=== PATIENT | female | born 1980 | race Caucasian/White ===

== ENCOUNTER 2017-01-13 23:34 | Emergency (ER) | payer OTHER ==
[~2017-01-13] VITALS: Ht 165.1 cm; Wt 62.2 kg
[~2017-01-13 23:34] MED LIST: /AUGM875TA OR; DEPA250T2 PO; EXCETAB80 PO; FLAG500T OR; GABA-283 PO; IBUP600T OR; IMETREX SC; OMEP20CA3 PO; OSCA200T PO; PERC5TAB8 OR; RIZA10TA2 PO; SERT-138 PO; TRAZ-136 PO; TYLE325T5 PO; ZANA4CAP PO; [UNRECOGNIZED DRUG - OTHER] INH
[2017-01-13] MEDS ORDERED: LYRI150C PO (23:50)
[2017-01-13] MEDS ORDERED: NEUR800T PO (23:50)
[2017-01-13] MEDS ORDERED: ZOLO100T PO (23:50)
[2017-01-13] MEDS ORDERED: WELLTAB40 PO (23:50)
[2017-01-14] MEDS ORDERED: NS 1,000 ML IV ONE (00:15)
[2017-01-14 00:53] LABS: BASO % 0.5 % (0.0-1.0); EOS # 0.1 K/mm3 (0.0-0.50); LARGE UNSTAINED CELL % 0.8 % (0.0-4.0); LYMPH % 38.6 % (24.0-44.0); MEAN CORPUSCULAR HEMOGLOBIN 30.8 pg (27.0-33.0); MEAN CORPUSCULAR HGB CONC 33.7 g/dl (32.0-36.5); MEAN CORPUSCULAR VOLUME 91.4 fl (80.0-96.0); MONO # 0.2 K/mm3 (0.0-0.8); NEUTROPHILS # 2.8 K/mm3 (1.8-7.7); NEUTROPHILS % 55.2 % (36.0-66.0); PLATELET COUNT, AUTOMATED 149 k/mm3 (150-450); RED CELL DISTRIBUTION WIDTH 13.8 % (11.5-14.5)
[2017-01-14 01:08] LABS: ANION GAP 4 MEQ/L (8-16); BLOOD UREA NITROGEN 11 MG/DL (7-18); CALCIUM LEVEL 8.8 MG/DL (8.5-10.1); CARBON DIOXIDE LEVEL 30 MEQ/L (21-32); CHLORIDE LEVEL 106 MEQ/L (98-107); CREATININE FOR GFR 0.87 MG/DL (0.55-1.02); GLOMERULAR FILTRATION RATE > 60.0 (>60); GLUCOSE, FASTING 101 MG/DL (70-105); POTASSIUM SERUM 3.6 MEQ/L (3.5-5.1); SODIUM LEVEL 140 MEQ/L (136-145)
--- NOTE | 2017-01-14 01:10 | REPUSA ---
CT of the head Clinical history: Left-sided hemiparesis. Technique: Multiple axial CT images were obtained through the head without administration of contrast . Comparison: 01/12/2013. Findings: The ventricles and sulci are symmetric bilaterally. There is no evidence of acute hemorrhag e or infarct. There is no midline shift, mass effect, or extra-axial fluid collection. The osseous st ructures are unremarkable. The visualized paranasal sinuses and mastoid air cells are clear. Impression: Negative study.
[2017-01-14 01:33] LABS: INR 0.99
[2017-01-14] MEDS ORDERED: METOCLOPRAMIDE INJ 10MG/2ML VIAL (J2765) IV ONE ×2 (01:45→03:15)
[2017-01-14] MEDS ORDERED: KETOROLAC 30 MG/ML VIAL (J1885) IV ONE (01:45)
[2017-01-14] MEDS ORDERED: diphenhydrAMINE INJ 50MG/ML VIAL (J1200) IV ONE (01:45)
[2017-01-14 05:12] VITALS: BP 98/54
--- NOTE | 2017-01-14 08:26 | ECGEPIP ---
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
== END 2017-01-14 05:15 | disposition home or self-care (01) ==
LOC: M ED 23:34
DX: G43.409 Hemiplegic migraine, not intractable, without status migrainosus (principal); F17.210 Nicotine dependence, cigarettes, uncomplicated; Z79.899 Other long term (current) drug therapy; Z91.048 Other nonmedicinal substance allergy status

== ENCOUNTER → 2017-02-06 | Outpatient (CLI) | payer OTHER ==
[~2017-02-06] MED LIST changes: +LYRI150C PO; +NEUR800T PO; +WELLTAB40 PO; +ZOLO100T PO
[2017-02-06 18:20] LABS: FOLATE 7.8 NG/ML; VITAMIN B12 LEVEL 288 PG/ML
[2017-02-06 18:49] LABS: FREE T4 0.85 NG/DL (0.76-1.46)
[2017-02-06 18:54] LABS: MEAN CORPUSCULAR HEMOGLOBIN 30.8 pg (27.0-33.0); MEAN CORPUSCULAR HGB CONC 32.8 g/dl (32.0-36.5); MEAN CORPUSCULAR VOLUME 93.7 fl (80.0-96.0); RED CELL DISTRIBUTION WIDTH 14.7 % (11.5-14.5); WHITE BLOOD COUNT 3.9 K/mm3 (4.0-10.0)
[2017-02-09 00:08] LABS: Lyme Disease IgG/IgM Antibodie <0.91 ISR (0.00-0.90); Lyme Disease IgM Ab Quantitati <0.80 index (0.00-0.79)
== END ==
LOC: M WUC 12:03
PROVIDERS: ATTEND Physician Assistant Surgical
DX: M79.641 Pain in right hand (principal)

== ENCOUNTER → 2017-07-10 | Outpatient (CLI) | payer OTHER ==
--- NOTE | 2017-07-10 15:18 | REP ---
Clinical: Lower abdominal pain. Technique: Single supine view of the abdomen and pelvis. Comparison: 05/21/2015. Findings: Bowel gas pattern is nonspecific. No organomegaly. No abnormal calcifications. Skeletal structures are intact and normal for age. Impression: Normal nonspecific abdominal radiograph. Signed by Skyler Barajas MD 07/10/2017 03:09 P
[2017-07-10 17:12] LABS: BASO % 0.2 % (0.0-1.0); IMMATURE GRANULOCYTE % 0.4 % (0-0); LYMPH # 1.6 10^3/uL (1.5-4.5); LYMPH % 16.2 % (24.0-44.0); MEAN CORPUSCULAR HEMOGLOBIN 31.3 pg (27.0-33.0); MEAN CORPUSCULAR HGB CONC 34.3 g/dl (32.0-36.5); MEAN CORPUSCULAR VOLUME 91.2 fl (80.0-96.0); MONO # 0.3 10^3/uL (0.0-0.8); MONO % 3.3 % (0.0-5.0); NEUTROPHILS # 8.1 10^3/uL (1.8-7.7); NEUTROPHILS % 79.9 % (36.0-66.0); PLATELET COUNT, AUTOMATED 182 10^3/uL (150-450); RED CELL DISTRIBUTION WIDTH 13.2 % (11.5-14.5); WHITE BLOOD COUNT 10.1 10^3/uL (4.0-10.0)
[2017-07-10 18:37] LABS: ALBUMIN 4.4 GM/DL (3.2-5.2); ALBUMIN/GLOBULIN RATIO 1.33 (1.00-1.93); ALKALINE PHOSPHATASE 80 U/L (45-117); ALT/SGPT 20 U/L (12-78); AMYLASE 39 U/L (25-115); ANION GAP 4 MEQ/L (8-16); AST/SGOT 16 U/L (7-37); BILIRUBIN,TOTAL 0.3 MG/DL (0.2-1.0); BLOOD UREA NITROGEN 9 MG/DL (7-18); CALCIUM LEVEL 8.6 MG/DL (8.5-10.1); CARBON DIOXIDE LEVEL 31 MEQ/L (21-32); CHLORIDE LEVEL 103 MEQ/L (98-107); CREATININE FOR GFR 0.78 MG/DL (0.55-1.02); GLOMERULAR FILTRATION RATE > 60.0 (>60); GLUCOSE, FASTING 90 MG/DL (70-105); POTASSIUM SERUM 4.2 MEQ/L (3.5-5.1); SODIUM LEVEL 138 MEQ/L (136-145); TOTAL PROTEIN 7.7 GM/DL (6.4-8.2)
== END ==
LOC: M WUC 14:46
PROVIDERS: ATTEND Physician Assistant
DX: R10.30 Lower abdominal pain, unspecified (principal)

== ENCOUNTER → 2017-07-17 | Outpatient (REF) | payer OTHER | LOC: M LAB REF 13:02 | DX: R10.32 Left lower quadrant pain (principal) | CPT/HCPCS: 87086 ==

== ENCOUNTER → 2017-07-17 | Outpatient (CLI) | payer OTHER ==
[2017-07-17 15:19] LABS: BASO % 0.4 % (0.0-1.0); HEMATOCRIT 40.6 % (36.0-47.0); HEMOGLOBIN 13.9 g/dl (12.0-16.0); IMMATURE GRANULOCYTE % 0.2 % (0-0); LYMPH # 2.2 10^3/uL (1.5-4.5); LYMPH % 47.6 % (24.0-44.0); MEAN CORPUSCULAR HEMOGLOBIN 31.5 pg (27.0-33.0); MEAN CORPUSCULAR HGB CONC 34.2 g/dl (32.0-36.5); MEAN CORPUSCULAR VOLUME 92.1 fl (80.0-96.0); MONO # 0.2 10^3/uL (0.0-0.8); MONO % 4.1 % (0.0-5.0); NEUTROPHILS # 2.2 10^3/uL (1.8-7.7); NEUTROPHILS % 47.7 % (36.0-66.0); PLATELET COUNT, AUTOMATED 179 10^3/uL (150-450); RED BLOOD COUNT 4.41 10^6/uL (4.00-5.40); WHITE BLOOD COUNT 4.6 10^3/uL (4.0-10.0)
== END ==
LOC: M WUC 12:14
DX: R10.32 Left lower quadrant pain (principal)
CPT/HCPCS: 85025

== ENCOUNTER → 2017-07-27 | Outpatient (CLI) | payer OTHER ==
[~2017-07-27] MED LIST changes: -/AUGM875TA OR; -DEPA250T2 PO; -EXCETAB80 PO; -FLAG500T OR; -GABA-283 PO; +GASTROGRAFIN SOLUTION 30ML (Q9963) As Ordered; -IBUP600T OR; -IMETREX SC; +ISOVUE-370 76% 100ML VIAL (Q9967) As Ordered; -LYRI150C PO; -NEUR800T PO; -OMEP20CA3 PO; -OSCA200T PO; -PERC5TAB8 OR; -RIZA10TA2 PO; -SERT-138 PO; -TRAZ-136 PO; -TYLE325T5 PO; -WELLTAB40 PO; -ZANA4CAP PO; -ZOLO100T PO; -[UNRECOGNIZED DRUG - OTHER] INH
== END ==
LOC: M RAD 14:05
DX: R10.9 Unspecified abdominal pain (principal)
CPT/HCPCS: Q9963

== ENCOUNTER → 2018-11-05 | Outpatient (CLI) | payer OTHER ==
[~2018-11-05] MED LIST changes: +/AUGM875TA OR; +DEPA250T2 PO; +EXCETAB80 PO; +FLAG500T OR; +GABA-845 PO; -GASTROGRAFIN SOLUTION 30ML (Q9963) As Ordered; +IBUP600T OR; +IMETREX SC; -ISOVUE-370 76% 100ML VIAL (Q9967) As Ordered; +LYRI150C PO; +NEUR800T PO; +OMEP20CA3 PO; +OSCA200T PO; +PERC5TAB8 OR; +RIZA10TA2 PO; +SERT-138 PO; +TRAZ-163 PO; +TYLE325T5 PO; +WELLTAB40 PO; +ZANA4CAP PO; +ZOLO100T PO; +[UNRECOGNIZED DRUG - OTHER] INH
[2018-11-05 13:42] LABS: BASO % 0.4 % (0.0-1.0); HEMOGLOBIN 14.6 g/dl (12.0-15.5); LYMPH # 2.2 10^3/uL (1.5-4.5); MEAN CORPUSCULAR HEMOGLOBIN 30.7 pg (27.0-33.0); MEAN CORPUSCULAR HGB CONC 33.2 g/dl (32.0-36.5); MEAN CORPUSCULAR VOLUME 92.4 fl (80.0-96.0); MONO # 0.2 10^3/uL (0.0-0.8); MONO % 3.6 % (0.0-5.0); NEUTROPHILS # 2.9 10^3/uL (1.8-7.7); NEUTROPHILS % 53.8 % (36.0-66.0); PLATELET COUNT, AUTOMATED 181 10^3/uL (150-450); RED BLOOD COUNT 4.76 10^6/uL (4.00-5.40); WHITE BLOOD COUNT 5.3 10^3/uL (4.0-10.0)
[2018-11-05 13:47] LABS: ALBUMIN 3.7 GM/DL (3.2-5.2); ALT/SGPT 26 U/L (12-78); BILIRUBIN,TOTAL 0.3 MG/DL (0.2-1.0); BLOOD UREA NITROGEN 9 MG/DL (7-18); CALCIUM LEVEL 8.6 MG/DL (8.5-10.1); CARBON DIOXIDE LEVEL 29 MEQ/L (21-32); CHLORIDE LEVEL 103 MEQ/L (98-107); CREATININE FOR GFR 0.72 MG/DL (0.55-1.30); GLOMERULAR FILTRATION RATE > 60.0 (>60); GLUCOSE, FASTING 88 MG/DL (70-100); POTASSIUM SERUM 4.3 MEQ/L (3.5-5.1); SODIUM LEVEL 139 MEQ/L (136-145); TOTAL PROTEIN 7.3 GM/DL (6.4-8.2)
== END ==
LOC: M WUC 11:26
PROVIDERS: ATTEND Family Medicine
DX: R53.83 Other fatigue (principal)

== ENCOUNTER 2018-12-05 13:38 | Emergency (ER) | payer OTHER ==
[~2018-12-05] VITALS: Ht 152.4 cm; Wt 62.2 kg
[2018-12-05] MEDS ORDERED: TRAM50TA2 (13:51)
[2018-12-05 14:24] LABS: APPEARANCE, URINE CLEAR (CLEAR); BACTERIA, URINE AUTO 1+ (NEGATIVE); BILIRUBIN, URINE AUTO NEGATIVE (NEGATIVE); BLOOD, URINE BLOOD 1+ (NEGATIVE); COLOR, URINE YELLOW (YELLOW); GLUCOSE, URINE (UA) AUTO NEGATIVE (NEGATIVE); KETONE, URINE AUTO NEGATIVE (NEGATIVE); LEUKOCYTE ESTERASE, URINE AUTO NEGATIVE (NEGATIVE); MUCUS, URINE SMALL (NEGATIVE); NITRITE, URINE AUTO NEGATIVE (NEGATIVE); PROTEIN, URINE AUTO NEGATIVE (NEGATIVE); RBC, URINE AUTO 5 /HPF (0-3); SPECIFIC GRAVITY URINE AUTO 1.024 (1.002-1.035); SQUAMOUS EPITHELIAL CELL UR AU 3 /HPF (0-6); WBC, URINE AUTO 1 /HPF (0-3)
[2018-12-05 15:00] LABS: BASO % 0.4 % (0.0-1.0); EOS % 0.2 % (0.0-3.0); HEMATOCRIT 42.1 % (36.0-47.0); HEMOGLOBIN 14.4 g/dl (12.0-15.5); LYMPH # 1.8 10^3/uL (1.5-4.5); LYMPH % 39.6 % (24.0-44.0); MEAN CORPUSCULAR HEMOGLOBIN 32.1 pg (27.0-33.0); MEAN CORPUSCULAR HGB CONC 34.2 g/dl (32.0-36.5); MEAN CORPUSCULAR VOLUME 93.8 fl (80.0-96.0); MONO # 0.2 10^3/uL (0.0-0.8); MONO % 4.2 % (0.0-5.0); NEUTROPHILS # 2.5 10^3/uL (1.8-7.7); NEUTROPHILS % 55.4 % (36.0-66.0); PLATELET COUNT, AUTOMATED 187 10^3/uL (150-450); RED BLOOD COUNT 4.49 10^6/uL (4.00-5.40); WHITE BLOOD COUNT 4.5 10^3/uL (4.0-10.0)
[2018-12-05 15:24] LABS: BLOOD UREA NITROGEN 11 MG/DL (7-18); CALCIUM LEVEL 8.1 MG/DL (8.5-10.1); CARBON DIOXIDE LEVEL 25 MEQ/L (21-32); CHLORIDE LEVEL 109 MEQ/L (98-107); CREATININE FOR GFR 0.67 MG/DL (0.55-1.30); GLOMERULAR FILTRATION RATE > 60.0 (>60); GLUCOSE, FASTING 102 MG/DL (70-100); POTASSIUM SERUM 4.1 MEQ/L (3.5-5.1); SODIUM LEVEL 141 MEQ/L (136-145)
[2018-12-05 16:01] LABS: HCG, SERUM QUALITATIVE NEGATIVE (NEGATIVE)
[2018-12-05 16:29] LABS: ALBUMIN 3.7 GM/DL (3.2-5.2); ALT/SGPT 223 U/L (12-78); AMYLASE 40 U/L (25-115); BILIRUBIN,DIRECT < 0.1 MG/DL (0.0-0.2); BILIRUBIN,TOTAL 0.2 MG/DL (0.2-1.0); CK-MB VALUE MASS < 1.0 NG/ML (<3.6); CPK CREATINE PHOSPHOKINASE 75 U/L (26-192); LIPASE 167 U/L (73-393); MB/CK RELATIVE INDEX 1.33 (< OR =4); TOTAL PROTEIN 6.8 GM/DL (6.4-8.2); TROPONIN I < 0.02 NG/ML (< 0.10)
--- NOTE | 2018-12-05 17:00 | REP ---
Clinical: Acute chest and abdominal pain. Technique: Upright view of the chest with supine and upright views of the abdomen and pelvis. Findings: Frontal upright view of the chest demonstrates no acute cardiopulmonary process or free air below the diaphragm to suspect pneumoperitoneum. Supine and upright views of the abdomen and pelvis demonstrate nonspecific bowel gas pattern without obstruction or perforation. No organomegaly. No abnormal calcifications. Skeletal structures normal for age. Impression: Nonspecific bowel gas pattern. Normal frontal chest x-ray. Electronically Signed by Skyler Barajas MD 12/05/2018 04:52 P
--- NOTE | 2018-12-05 17:37 | REP ---
Clinical: Elevated liver function tests. Technique: Real time rogers scale ultrasound examination using curved array transducer. Findings: Gallbladder appears contracted with multiple gallstones and a positive sonographic Li's sign was elicited during examination. No biliary ductal dilatation is appreciated and the common bile duct measures 6 mm diameter. Liver demonstrates heterogeneous increased echotexture suggesting fatty infiltration without focal hepatic lesion identified. The pancreas is normal in appearance and echogenicity. The right kidney is normal in reniform shape without hydronephrosis and measures 9.3 x 4.8 x 3.9 cm. No ascites. Impression: 1. Cholelithiasis and findings to suggest biliary colic. Early acute cholecystitis cannot be excluded. 2. Hepatic steatosis without focal hepatic lesion identified. Electronically Signed by Skyler Barajas MD 12/05/2018 05:29 P
[2018-12-05 17:43] VITALS: BP 108/60
[2018-12-05] MEDS ORDERED: ONDA4TAB6 PO (18:14)
--- NOTE | 2018-12-05 20:52 | ECGEPIP ---
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 Order Number: [id number] Reading MD: Kelsey Perez Measurements Intervals [place] Rate: 67 P: 52 NV: 136 QRS: 86 QRSD: 82 T: 72 QT: 371 QTc: 393 Interpretive Statements SINUS RHYTHM DECREASED RATE 01/14/17 Electronically Signed on 12-05-2018 20:52:29 EDT by Kelsey Perez
[2018-12-06 11:17] LABS: HEPATITIS A ANTIBODY IGM NEGATIVE (NEGATIVE); HEPATITIS B CORE ANTIBODY IGM NEGATIVE (NEGATIVE); HEPATITIS B SURFACE ANTIGEN NEGATIVE (NEGATIVE)
--- NOTE | 2018-12-07 09:03 | ED PDOC ---
Post-Departure Follow-Up dr rossi and dr hobson faxed formal report of liver us for fu Abdirahman Reveles MD December 07, 2018 09:03
== END 2018-12-05 18:37 | disposition home or self-care (01) ==
LOC: M ED 13:38
DX: K80.70 Calculus of gallbladder and bile duct without cholecystitis without obstruction (principal); K76.0 Fatty (change of) liver, not elsewhere classified; J44.9 Chronic obstructive pulmonary disease, unspecified; G43.809 Other migraine, not intractable, without status migrainosus; Z79.899 Other long term (current) drug therapy

== ENCOUNTER 2018-12-09 12:03 | Emergency (ER) | payer OTHER ==
[~2018-12-09] VITALS: Ht 152.4 cm; Wt 62.2 kg
[~2018-12-09 12:03] MED LIST changes: +ONDA4TAB6 PO; +TRAM50TA2
[2018-12-09 12:49] LABS: BASO % 0.4 % (0.0-1.0); LYMPH # 2.2 10^3/uL (1.5-4.5); LYMPH % 43.5 % (24.0-44.0); MEAN CORPUSCULAR HEMOGLOBIN 31.5 pg (27.0-33.0); MEAN CORPUSCULAR HGB CONC 33.3 g/dl (32.0-36.5); MEAN CORPUSCULAR VOLUME 94.5 fl (80.0-96.0); MONO # 0.2 10^3/uL (0.0-0.8); MONO % 3.5 % (0.0-5.0); NEUTROPHILS # 2.7 10^3/uL (1.8-7.7); NEUTROPHILS % 52.2 % (36.0-66.0); PLATELET COUNT, AUTOMATED 182 10^3/uL (150-450); RED BLOOD COUNT 4.76 10^6/uL (4.00-5.40); WHITE BLOOD COUNT 5.1 10^3/uL (4.0-10.0)
[2018-12-09 13:13] LABS: ALBUMIN 3.9 GM/DL (3.2-5.2); ALT/SGPT 77 U/L (12-78); BILIRUBIN,DIRECT < 0.1 MG/DL (0.0-0.2); BILIRUBIN,TOTAL 0.3 MG/DL (0.2-1.0); BLOOD UREA NITROGEN 7 MG/DL (7-18); CALCIUM LEVEL 8.5 MG/DL (8.5-10.1); CARBON DIOXIDE LEVEL 27 MEQ/L (21-32); CHLORIDE LEVEL 109 MEQ/L (98-107); CREATININE FOR GFR 0.65 MG/DL (0.55-1.30); GLOMERULAR FILTRATION RATE > 60.0 (>60); GLUCOSE, FASTING 89 MG/DL (70-100); LIPASE 166 U/L (73-393); POTASSIUM SERUM 4.8 MEQ/L (3.5-5.1); SODIUM LEVEL 141 MEQ/L (136-145); TOTAL PROTEIN 7.2 GM/DL (6.4-8.2)
[2018-12-09] MEDS ORDERED: ONDANSETRON 4MG/2ML VIAL (J2405) IV ONE (14:00)
[2018-12-09] MEDS ORDERED: MORPHINE 4 MG/ML 1ML VIAL/SYRINGE (J2270) IV PRN (14:00)
[2018-12-09] MEDS ORDERED: NS 1,000 ML IV ONE (14:00)
[2018-12-09] MEDS ORDERED: PERC5TAB12 PO (15:19)
[2018-12-09 15:31] VITALS: BP 117/62
--- NOTE | 2018-12-09 21:11 | ECGEPIP ---
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
== END 2018-12-09 15:38 | disposition home or self-care (01) ==
LOC: M ED 12:03
DX: R10.9 Unspecified abdominal pain (principal); R74.0 Nonspecific elevation of levels of transaminase and lactic acid dehydrogenase [LDH]; R11.0 Nausea; J44.9 Chronic obstructive pulmonary disease, unspecified; K21.9 Gastro-esophageal reflux disease without esophagitis; Z79.899 Other long term (current) drug therapy; F17.210 Nicotine dependence, cigarettes, uncomplicated
CPT/HCPCS: 80048; 80076; 83690; 85025; 93005; 96374; 96375; 99284; J2270; J2405

== ENCOUNTER → 2018-12-19 | Outpatient (CLI) | payer OTHER ==
[~2018-12-19] MED LIST changes: +PERC5TAB12 PO
[2018-12-19 19:20] LABS: BASO % 0.4 % (0.0-1.0); EOS % 0.2 % (0.0-3.0); HEMATOCRIT 45.5 % (36.0-47.0); HEMOGLOBIN 15.1 g/dl (12.0-15.5); LYMPH # 2.1 10^3/uL (1.5-4.5); LYMPH % 38.2 % (24.0-44.0); MEAN CORPUSCULAR HEMOGLOBIN 30.9 pg (27.0-33.0); MEAN CORPUSCULAR HGB CONC 33.2 g/dl (32.0-36.5); MONO # 0.2 10^3/uL (0.0-0.8); MONO % 3.8 % (0.0-5.0); NEUTROPHILS # 3.2 10^3/uL (1.8-7.7); NEUTROPHILS % 57.2 % (36.0-66.0); PLATELET COUNT, AUTOMATED 167 10^3/uL (150-450); RED BLOOD COUNT 4.89 10^6/uL (4.00-5.40); WHITE BLOOD COUNT 5.5 10^3/uL (4.0-10.0)
[2018-12-19 19:25] LABS: ALBUMIN 3.8 GM/DL (3.2-5.2); ALT/SGPT 27 U/L (12-78); BILIRUBIN,TOTAL 0.2 MG/DL (0.2-1.0); BLOOD UREA NITROGEN 11 MG/DL (7-18); CALCIUM LEVEL 8.5 MG/DL (8.5-10.1); CARBON DIOXIDE LEVEL 28 MEQ/L (21-32); CHLORIDE LEVEL 104 MEQ/L (98-107); CREATININE FOR GFR 0.93 MG/DL (0.55-1.30); GLOMERULAR FILTRATION RATE > 60.0 (>60); GLUCOSE, FASTING 94 MG/DL (70-100); POTASSIUM SERUM 4.3 MEQ/L (3.5-5.1); SODIUM LEVEL 139 MEQ/L (136-145); TOTAL PROTEIN 7.5 GM/DL (6.4-8.2)
== END ==
LOC: M WUC 11:09
PROVIDERS: ATTEND Family Medicine
DX: Z01.818 Encounter for other preprocedural examination (principal)

== ENCOUNTER 2018-12-27 07:11 | Day surgery (SDC) | payer OTHER ==
[~2018-12-27] VITALS: Ht 152.4 cm; Wt 61.2 kg
[~2018-12-27 07:11] MED LIST changes: +AMPICILLIN SOD/SULBACTAM SOD 3 GM in D5W MINI-BAG PLUS 100 ML IV ONE; +BUPIVACAINE HCL 0.25% 30 ML VIAL As Ordered ONE; +CONRAY-60 60% 50ML VIAL (Q9961) As Ordered ONE; +LIDOCAINE 1% SDV INJ 30 ML VIAL As Ordered ONE; +LR 1,000 ML IV SCH
[2018-12-27] MEDS ORDERED: ACETAMINOPHEN 1000MG 100ML IV BTL (OFIRMEV) (J0131 PER 10MG) As Ordered ONE ×2 (08:38→09:53)
[2018-12-27] MEDS ORDERED: fentaNYL 250 MCG/5 ML INJECTION (J3010) As Ordered ONE (09:53)
[2018-12-27] MEDS ORDERED: ROCURONIUM BROMIDE 50 MG/5 ML VIAL As Ordered ONE (09:53)
[2018-12-27] MEDS ORDERED: PROPOFOL 200 MG/20 ML VIAL As Ordered ONE (09:53)
[2018-12-27] MEDS ORDERED: dexameTHASONE 4 MG/ML 1ML VIAL (J1100) As Ordered ONE (09:53)
[2018-12-27] MEDS ORDERED: MIDAZOLAM INJ 2 MG/2 ML VIAL (J2250) As Ordered ONE (09:53)
[2018-12-27] MEDS ORDERED: LIDOCAINE 2% INJ 100 MG/5 ML SDV (FOR ANES.) As Ordered ONE (09:53)
[2018-12-27] MEDS ORDERED: ONDANSETRON 4MG/2ML VIAL (J2405) As Ordered ONE ×2 (10:08→12:00)
[2018-12-27] MEDS ORDERED: ESMOLOL INJ 100MG/10ML VIAL As Ordered ONE (10:16)
[2018-12-27] MEDS ORDERED: SUGAMMADEX SODIUM 500 MG/5 ML VIAL (BRIDION) As Ordered ONE (11:24)
--- NOTE | 2018-12-27 11:26 | REP ---
INTRAOPERATIVE CHOLANGIOGRAM: Three views. HISTORY: Cholelithiasis. 35 seconds of fluoroscopy time is reported. FINDINGS: A sequence of three last image hold fluoroscopically obtained spot radiographs of the right upper quadrant documents contrast in the gallbladder, common bile duct and central intrahepatic right bile ducts. No contrast is visible in the duodenum. No filling defect is seen in the bile duct. Electronically Signed by Reno Cordero MD 12/27/2018 03:09 P
[2018-12-27] MEDS ORDERED: KETOROLAC 60 MG/2 ML VIAL (J1885) As Ordered ONE (11:28)
[2018-12-27] MEDS ORDERED: fentaNYL 100 MCG/2 ML INJECTION (J3010) As Ordered ONE (12:00)
[2018-12-27] MEDS ORDERED: LR 1,000 ML IV SCH (12:00)
[2018-12-27] MEDS ORDERED: oxyCODONE 5MG TAB PO PRN (12:00)
[2018-12-27] MEDS ORDERED: ONDANSETRON 4MG/2ML VIAL (J2405) IV PRN ×2 (12:00→12:15)
[2018-12-27] MEDS: fentaNYL 100 MCG/2 ML INJECTION (J3010) IV PRN ×2 (12:00→12:05)
[2018-12-27] MEDS ORDERED: PERCOCET 5MG/325MG TAB PO PRN ×2 (12:15)
[2018-12-27 13:10] VITALS: BP 124/61
[2018-12-27] MEDS ORDERED: KETOROLAC 30 MG/ML VIAL (J1885) IV PRN (18:00)
--- NOTE | 2018-12-28 10:55 | ROOPDOC ---
[facility] Report Of Operation Report of Operation DATE OF PROCEDURE: 12/27/18 PREPROCEDURE DIAGNOSES: Cholelithiasis, biliary colic, abnormal LFTs. POSTPROCEDURE DIAGNOSES: Same. PROCEDURE: Laparoscopic cholecystectomy with intraoperative cholangiogram. SURGEON: Zhang Corado MD [employer]PAIR SUPERVISOR: Joshua Powers (MS III) ANESTHESIA: General Anesthesia. ESTIMATED BLOOD LOSS: Approximately 20 mL. COMPLICATIONS: none. REMARKS: 38 F with persistent right upper quadrant pain for roughly four weeks now, 2 emergency room visits with evidence for cholelithiasis, and transient elevation of her LFTs suggestive of probably passage of stones through her biliary ducts. PROCEDURE NOTE: distended but thin walled gallbladder, no wall thickening. Distended and enlarged cystic duct with stones in it. Normal sized common bile duct without stones on cholangiogram. DESCRIPTION OF PROCEDURE: Patient was given a dose Unasyn 3 g IV preoperatively for prophylaxis. He was brought to the operating room, laid supine on the table, compression boots placed for DVT prophylaxis. General endotracheal anesthesia started. His abdomen then prepped and draped in usual sterile fashion. Surgical timeout was performed prior to confirm right procedure, right patient identification and other necessary information prior to starting surgery. Entry into the abdomen done through an incision a few centimeters above the umbilical cleft. A Veress needle was inserted with a controlled fashion. CO2 insufflation started to pressure 15 mmHg. Using the same incision a 5 mm Visiport was placed under direct vision laparoscope. The area underneath the insertion site was inspected and no injury found. He was then placed in steep reverse Trendelenburg. His right side was tilted up to further expose the gallbladder. Under direct vision a 11 mm epigastric port and Two 5 mm working ports placed along the right subcostal line. Operative findings: His liver is noted to be smooth in contour no nodularities or lesions found. The size of the liver is moderately enlarged with the fatty replaced appearance . His gallbladder appears distended with multiple stones that are mobile in the neck and mid body of his gallbladder. The wall overall appears mildly thickened with thick fatty adipose tissue deposition especially in the lower pole of the gallbladder around the hepatocystic triangle The fundus of the gallbladder was grasped and the gallbladder is elevated superiorly exposing the neck of the gallbladder. The peritoneum overlying the area is opened up and dissected free both anteriorly and posteriorly to help with retraction of the gallbladder. The hepatocystic triangle was approached and dissected using a [place] and instrument. The cystic duct was identified coming off from the neck of the gallbladder. This was circumferentially dissected. The cystic artery was identified in its usual position medially behind a small lymph node of Calot. This was similarly circumferentially dissected off surrounding adipose tissue. We continued posterior dissection proximally at the neck of gallbladder to dissect the posterior wall of the gallbladder off the liver plate until a critical view of safety was achieved whereby only the previously identified duct and artery coursing through the neck the gallbladder. There was some bleeding behind the gallbladder. At this point the the cystic duct was most accessible and this was clipped 4 times and divided. We were then able to expose the course of the cystic artery better. After again checking her anatomy and verifying that the previously identified cystic duct, this was also clipped 4 times and divided. The rest of the gallbladder was then dissected free of the gallbladder bed using Bovie cautery. There was minimal bleeding at the posterior gallbladder attachments to the liver plate. This was easily controlled with Bovie cautery. The number appears quite mushy and easy to break through the thin capsule and cause some slight bleeding. The gallbladder was then placed in an Endo Catch bag and retrieved outside through the epigastric port site. After re-insufflation and inspected the clips and noted this to be in place. No further bleeding noted. No bile leakage noted. The abdomen was deflated all ports were removed. The epigastric fascial defect repaired with 0 Vicryl in a mattress fashion. Rest of the skin incisions closed with 4-0 Monocryl in subcuticular fashion. Steri- Strips and gauze dressings were placed, the wound. Patient was informed they awakened, extubated and brought to recovery room stable ZHANG CORADO MD Dec 27, 2018 12:27
== END 2018-12-27 13:15 | disposition home or self-care (01) ==
LOC: M SDC 07:11
PROVIDERS: ATTEND Surgery
DX: M79.7 Fibromyalgia (principal); R94.5 Abnormal results of liver function studies; F32.9 Major depressive disorder, single episode, unspecified; G43.909 Migraine, unspecified, not intractable, without status migrainosus; M79.10 Myalgia, unspecified site; M54.2 Cervicalgia; M54.5 Low back pain; G89.29 Other chronic pain; K21.9 Gastro-esophageal reflux disease without esophagitis; M12.9 Arthropathy, unspecified; F41.9 Anxiety disorder, unspecified; I69.998 Other sequelae following unspecified cerebrovascular disease; J44.9 Chronic obstructive pulmonary disease, unspecified; Z79.899 Other long term (current) drug therapy; Z85.43 Personal history of malignant neoplasm of ovary; Z72.0 Tobacco use; Z90.710 Acquired absence of both cervix and uterus
CPT/HCPCS: 47563; 76000; 88304; J0131; J1100; J1885; J2250; J2405; J3010; Q9961

== ENCOUNTER → 2019-01-09 | Outpatient (CLI) | payer OTHER ==
[~2019-01-09] MED LIST changes: -AMPICILLIN SOD/SULBACTAM SOD 3 GM in D5W MINI-BAG PLUS 100 ML IV ONE; -BUPIVACAINE HCL 0.25% 30 ML VIAL As Ordered ONE; -CONRAY-60 60% 50ML VIAL (Q9961) As Ordered ONE; -LIDOCAINE 1% SDV INJ 30 ML VIAL As Ordered ONE; -LR 1,000 ML IV SCH; +NAPR-837 PO
[2019-01-09 12:31] LABS: HEMATOCRIT 42.1 % (36.0-47.0); HEMOGLOBIN 13.9 g/dl (12.0-15.5); MEAN CORPUSCULAR HEMOGLOBIN 31.6 pg (27.0-33.0); MEAN CORPUSCULAR VOLUME 95.7 fl (80.0-96.0); PLATELET COUNT, AUTOMATED 188 10^3/uL (150-450); WHITE BLOOD COUNT 6.6 10^3/uL (4.0-10.0)
[2019-01-09 13:03] LABS: ALBUMIN 3.9 GM/DL (3.2-5.2); ALT/SGPT 111 U/L (12-78); AMYLASE 36 U/L (25-115); BILIRUBIN,TOTAL 0.2 MG/DL (0.2-1.0); BLOOD UREA NITROGEN 8 MG/DL (7-18); CALCIUM LEVEL 8.5 MG/DL (8.5-10.1); CARBON DIOXIDE LEVEL 27 MEQ/L (21-32); CHLORIDE LEVEL 108 MEQ/L (98-107); CREATININE FOR GFR 0.67 MG/DL (0.55-1.30); GLOMERULAR FILTRATION RATE > 60.0 (>60); GLUCOSE, FASTING 84 MG/DL (70-100); LIPASE 144 U/L (73-393); POTASSIUM SERUM 4.2 MEQ/L (3.5-5.1); SODIUM LEVEL 142 MEQ/L (136-145); TOTAL PROTEIN 6.9 GM/DL (6.4-8.2)
== END ==
LOC: M LAB 11:55
PROVIDERS: ATTEND Surgery
DX: K80.10 Calculus of gallbladder with chronic cholecystitis without obstruction (principal)

== ENCOUNTER 2019-01-19 16:16 | Emergency (ER) | payer OTHER ==
[~2019-01-19] VITALS: Ht 157.5 cm; Wt 60.9 kg
[~2019-01-19 16:16] MED LIST changes: -NAPR-837 PO; -OMEP20CA3 PO; +OMEP20CA4 PO
[2019-01-19] MEDS ORDERED: NS 1,000 ML IV ONE (16:45)
--- NOTE | 2019-01-19 16:55 | REP ---
Clinical: Altered mental status . Comparison: 01/14/2017 . Findings: The ventricles, sulci, and cisterns are normal in position and appearance. Henley-white differentiation is maintained. No acute intracranial hemorrhage, mass/mass effect, pathology or trauma/injury. No evidence for acute infarction. No extra-axial fluid collection. Calvarium is intact. Paranasal sinuses and mastoid air cells are clear. Impression: Normal noncontrast head CT. No evidence for acute intracranial pathology or trauma/injury. Electronically Signed by Skyler Barajas MD 01/19/2019 04:46 P
--- NOTE | 2019-01-19 17:02 | REP ---
Clinical: Altered mental status. Seizure. Comparison: 12/05/2018 . Findings: The mediastinum and cardiac silhouette are stable and within normal limits for portable technique. The lung reid are clear without acute consolidation, effusion, or pneumothorax. Skeletal structures are intact. Impression: No acute cardiopulmonary process appreciated. Electronically Signed by Skyler Barajas MD 01/19/2019 04:54 P
[2019-01-19 17:07] LABS: BASO % 0.4 % (0.0-1.0); EOS % 0.2 % (0.0-3.0); HEMATOCRIT 45.1 % (36.0-47.0); LYMPH # 1.7 10^3/uL (1.5-4.5); LYMPH % 36.8 % (24.0-44.0); MEAN CORPUSCULAR HEMOGLOBIN 31.8 pg (27.0-33.0); MEAN CORPUSCULAR HGB CONC 33.3 g/dl (32.0-36.5); MEAN CORPUSCULAR VOLUME 95.8 fl (80.0-96.0); MONO # 0.2 10^3/uL (0.0-0.8); MONO % 3.4 % (0.0-5.0); NEUTROPHILS # 2.8 10^3/uL (1.8-7.7); NEUTROPHILS % 58.8 % (36.0-66.0); PLATELET COUNT, AUTOMATED 188 10^3/uL (150-450); RED BLOOD COUNT 4.71 10^6/uL (4.00-5.40); WHITE BLOOD COUNT 4.7 10^3/uL (4.0-10.0)
--- NOTE | 2019-01-19 17:10 | ECGEPIP ---
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
[2019-01-19 17:46] LABS: ACETAMINOPHEN LEVEL < 2.0 UG/ML (10.0-30.0); ALT/SGPT 28 U/L (12-78); BILIRUBIN,DIRECT < 0.1 MG/DL (0.0-0.2); BILIRUBIN,TOTAL 0.3 MG/DL (0.2-1.0); BLOOD UREA NITROGEN 6 MG/DL (7-18); CALCIUM LEVEL 8.5 MG/DL (8.5-10.1); CARBON DIOXIDE LEVEL 27 MEQ/L (21-32); CHLORIDE LEVEL 105 MEQ/L (98-107); CK-MB VALUE MASS < 1.0 NG/ML (<3.6); CPK CREATINE PHOSPHOKINASE 97 U/L (26-192); CREATININE FOR GFR 0.78 MG/DL (0.55-1.30); ETHYL ALCOHOL (ETHANOL) < 0.003 % (0.000-0.010); GLOMERULAR FILTRATION RATE > 60.0 (>60); GLUCOSE, FASTING 91 MG/DL (70-100); MB/CK RELATIVE INDEX 1.03 (< OR =4); POTASSIUM SERUM 4.3 MEQ/L (3.5-5.1); SALICYLATE LEVEL 4.4 MG/DL (5.0-30.0); SODIUM LEVEL 141 MEQ/L (136-145); TOTAL PROTEIN 7.4 GM/DL (6.4-8.2); TROPONIN I < 0.02 NG/ML (< 0.10)
[2019-01-19 19:07] LABS: AMPHETAMINES LEVEL URINE NEGATIVE (NEGATIVE); BARBITURATES URINE NEGATIVE (NEGATIVE); BENZODIAZEPINES URINE NEGATIVE (NEGATIVE); CANNABINOIDS URINE POSITIVE (NEGATIVE); COCAINE METABOLITE URINE NEGATIVE (NEGATIVE); METHADONE URINE NEGATIVE (NEGATIVE); OPIATES URINE NEGATIVE (NEGATIVE); PHENCYCLIDINE URINE NEGATIVE (NEGATIVE)
[2019-01-19] MEDS ORDERED: NAPR-837 PO (19:46)
[2019-01-19 20:00] VITALS: BP 119/74
== END 2019-01-19 20:10 | disposition home or self-care (01) ==
LOC: EDBD 16:16 → M ED 16:16
DX: G40.209 Localization-related (focal) (partial) symptomatic epilepsy and epileptic syndromes with complex partial seizures, not intractable, without status epilepticus (principal); Z86.73 Personal history of transient ischemic attack (TIA), and cerebral infarction without residual deficits; Z79.899 Other long term (current) drug therapy
CPT/HCPCS: 70450; 71045; 80048; 80076; 80307; 81001; 82140; 82550; 82553; 83605; 84443; 85025; 93005; 93041; 94760; 96360; 96361; 99285; G0480

== ENCOUNTER → 2019-01-21 | Outpatient (CLI) | payer OTHER ==
[~2019-01-21] MED LIST changes: +NAPR-837 PO
--- NOTE | 2019-01-21 21:41 | REP ---
Clinical: Contusion. Technique: AP, lateral, bilateral oblique views of the left hand. Findings: No acute fracture dislocation. Skeletal structures, joint spaces, and surrounding soft tissues appear normal. Impression: No obvious fracture or dislocation. Subtle nondisplaced transverse fracture through the distal radial metaphysis cannot be excluded. Electronically Signed by Skyler aBrajas MD 01/21/2019 09:32 P
--- NOTE | 2019-01-21 21:42 | REP ---
Clinical: Trauma. Technique: AP, lateral, bilateral oblique views left wrist . Findings: The carpal bones, surrounding osseous structures, soft tissues, and joint spaces are normal. There is no evidence for acute fracture or dislocation. Cortical irregularity at the level of the distal radial metaphysis likely nonacute although very subtle nondisplaced injury cannot definitively be excluded and should be correlated with mechanism of injury and point of tenderness. No subcutaneous emphysema or radiodense foreign body. Impression: No definite acute fracture dislocation. As above. Correlation recommended. Electronically Signed by Skyler Barajas MD 01/21/2019 09:33 P
== END ==
LOC: M WUC 11:16
PROVIDERS: ATTEND Physician Assistant
DX: S60.212A Contusion of left wrist, initial encounter (principal); S60.222A Contusion of left hand, initial encounter; X58.XXXA Exposure to other specified factors, initial encounter; Y92.89 Other specified places as the place of occurrence of the external cause

== ENCOUNTER → 2019-01-28 | Outpatient (CLI) | payer OTHER ==
[~2019-01-28] MED LIST changes: +GASTROGRAFIN SOLUTION 30ML (Q9963) As Ordered ONE; +ISOVUE-370 76% 100ML VIAL (Q9967) As Ordered ONE; +OMEP1CAP73 PO; -OMEP20CA4 PO; -TRAZ-163 PO; +TRAZ-257 PO
--- NOTE | 2019-01-28 14:52 | REP ---
CT of the abdomen and pelvis with IV and oral contrast: Comparison is 07/27/2017. The visualized lung reid are unremarkable. The hepatic parenchyma is homogeneous. There is no dilatation of the intrahepatic biliary ducts. There is no dilatation of the common biliary duct. There are surgical clips in the gallbladder fossa as an interval change. The pancreas and spleen are unremarkable. The adrenals, kidneys and abdominal aorta are unremarkable. The bowel and mesentery are unremarkable. Pelvis: The appendix is unremarkable. e There is a hysterectomy. Vaginal cuff, adnexa and bladder are unremarkable. There is no adenopathy or ascites. The pelvic bowel loops are unremarkable. Impression: Cholecystectomy and hysterectomy. No biliary duct dilatation. Pancreas is unremarkable. Otherwise, negative CT of the abdomen and pelvis. Electronically Signed by Efrem Finley MD 01/28/2019 02:43 P
== END ==
LOC: M RAD 11:50
PROVIDERS: ATTEND Surgery
DX: K80.10 Calculus of gallbladder with chronic cholecystitis without obstruction (principal); Z90.49 Acquired absence of other specified parts of digestive tract; Z90.710 Acquired absence of both cervix and uterus
CPT/HCPCS: 74177; Q9963; Q9967

== ENCOUNTER → 2019-05-05 | Outpatient (REF) | payer OTHER ==
[~2019-05-05] MED LIST changes: -GASTROGRAFIN SOLUTION 30ML (Q9963) As Ordered ONE; -ISOVUE-370 76% 100ML VIAL (Q9967) As Ordered ONE; -OMEP1CAP73 PO; +OMEP20CA4 PO; +TRAZ-163 PO; -TRAZ-257 PO
[2019-05-05 15:08] LABS: BASO % 0.4 % (0.0-1.0); HEMOGLOBIN 14.3 g/dl (12.0-15.5); LYMPH # 1.9 10^3/uL (1.5-5.0); LYMPH % 42.6 % (24.0-44.0); MEAN CORPUSCULAR HEMOGLOBIN 31.9 pg (27.0-33.0); MEAN CORPUSCULAR HGB CONC 33.3 g/dl (32.0-36.5); MONO # 0.2 10^3/uL (0.0-0.8); MONO % 4.9 % (0.0-5.0); NEUTROPHILS # 2.3 10^3/uL (1.5-8.5); NEUTROPHILS % 51.9 % (36.0-66.0); PLATELET COUNT, AUTOMATED 166 10^3/uL (150-450); RED BLOOD COUNT 4.48 10^6/uL (4.00-5.40); WHITE BLOOD COUNT 4.5 10^3/uL (4.0-10.0)
[2019-05-05 15:23] LABS: ALBUMIN 3.5 GM/DL (3.2-5.2); ALT/SGPT 33 U/L (12-78); BILIRUBIN,TOTAL 0.3 MG/DL (0.2-1.0); BLOOD UREA NITROGEN 9 MG/DL (7-18); CALCIUM LEVEL 8.2 MG/DL (8.5-10.1); CARBON DIOXIDE LEVEL 29 MEQ/L (21-32); CHLORIDE LEVEL 107 MEQ/L (98-107); CHOLESTEROL LEVEL 284 MG/DL (<200); CHOLESTEROL RISK RATIO 8.606 (<5); CREATININE FOR GFR 0.81 MG/DL (0.55-1.30); FERRITIN 7 NG/ML (8-252); FREE T4 0.96 NG/DL (0.76-1.46); GLOMERULAR FILTRATION RATE > 60.0 (>60); GLUCOSE, FASTING 89 MG/DL (70-100); HDL CHOLESTEROL 33 MG/DL (>40); IRON (FE) 73 UG/DL (50-170); LDL CHOLESTEROL 209 MG/DL (<100); NON-HDL-C 251 MG/DL; PERCENT SATURATION 18.4 % (13.2-45.0); POTASSIUM SERUM 4.7 MEQ/L (3.5-5.1); SODIUM LEVEL 140 MEQ/L (136-145); TOTAL 25(OH) VITAMIN D 18.7 NG/ML (30.0-100.0); TOTAL IRON BINDING CAPACITY 396 UG/DL (250-450); TOTAL PROTEIN 6.8 GM/DL (6.4-8.2); TRIGLYCERIDES LEVEL 209 MG/DL (<150)
== END ==
LOC: M SFHCSACK 09:31
PROVIDERS: ATTEND Physician Assistant
DX: D50.9 Iron deficiency anemia, unspecified (principal); Z13.220 Encounter for screening for lipoid disorders; Z13.29 Encounter for screening for other suspected endocrine disorder; Z13.21 Encounter for screening for nutritional disorder

== ENCOUNTER 2019-09-20 20:04 | Emergency (ER) | payer OTHER ==
[~2019-09-20] VITALS: Ht 157.5 cm; Wt 62.5 kg
[~2019-09-20 20:04] MED LIST changes: +OMEP1CAP73 PO; -OMEP20CA4 PO; -TRAZ-163 PO; +TRAZ-257 PO
[2019-09-20] MEDS ORDERED: ALBU8.5H IH (20:17)
[2019-09-20] MEDS ORDERED: ONDANSETRON 4MG/2ML VIAL (J2405) IV ONE (21:15)
[2019-09-20] MEDS ORDERED: KETOROLAC 30 MG/ML VIAL (J1885) IV ONE (21:15)
[2019-09-20] MEDS ORDERED: NS 1,000 ML IV ONE (21:15)
[2019-09-20 21:33] LABS: BASO % 0.1 % (0.0-1.0); HEMATOCRIT 43.9 % (36.0-47.0); HEMOGLOBIN 14.9 g/dl (12.0-15.5); LYMPH # 2.5 10^3/uL (1.5-5.0); LYMPH % 31.9 % (24.0-44.0); MEAN CORPUSCULAR HEMOGLOBIN 30.7 pg (27.0-33.0); MEAN CORPUSCULAR HGB CONC 33.9 g/dl (32.0-36.5); MEAN CORPUSCULAR VOLUME 90.5 fl (80.0-96.0); MONO # 0.3 10^3/uL (0.0-0.8); MONO % 3.8 % (0.0-5.0); NEUTROPHILS # 5.1 10^3/uL (1.5-8.5); NEUTROPHILS % 63.9 % (36.0-66.0); PLATELET COUNT, AUTOMATED 216 10^3/uL (150-450); RED BLOOD COUNT 4.85 10^6/uL (4.00-5.40); WHITE BLOOD COUNT 7.9 10^3/uL (4.0-10.0)
[2019-09-20] MEDS ORDERED: ISOVUE-370 76% 100ML VIAL (Q9967) As Ordered ONE (22:10)
[2019-09-20 22:24] LABS: ALBUMIN 4.1 GM/DL (3.2-5.2); ALT/SGPT 40 U/L (12-78); BILIRUBIN,DIRECT < 0.1 MG/DL (0.0-0.2); BILIRUBIN,TOTAL 0.3 MG/DL (0.2-1.0); TOTAL PROTEIN 7.8 GM/DL (6.4-8.2)
--- NOTE | 2019-09-20 22:38 | REPVR ---
PROCEDURE INFORMATION: Exam: CT Abdomen And Pelvis With Contrast Exam date and time: 09/20/2019 10:05 PM Age: 38 years old Clinical indication: Abdominal pain; Localized; Right lower quadrant (rlq); Additional info: Rlq pain TECHNIQUE: Imaging protocol: Computed tomography of the abdomen and pelvis with intravenous contrast. Axial, coronal and sagittal reformatted images were created and reviewed. Radiation optimization: All CT scans at this facility use at least one of these dose optimization techniques: automated exposure control; mA and/or kV adjustment per patient size (includes targeted exams where dose is matched to clinical indication); or iterative reconstruction. Contrast material: ISOVUE 370; Contrast volume: 100 ml; Contrast route: IV; COMPARISON: CT ABD PELVIS WITH CONTRAST 01/28/2019 12:48 PM FINDINGS: Mediastinum: Small hiatal hernia. Liver: Mild hepatic steatosis. Gallbladder and bile ducts: Status post cholecystectomy. No biliary ductal dilatation. Pancreas: Unremarkable. Spleen: Unremarkable. Adrenals: Unremarkable. Kidneys and ureters: No mass. No radiodense calculi. No hydronephrosis. Stomach and bowel: No bowel wall thickening. No obstruction. No pneumatosis. Appendix: Normal. Intraperitoneal space: No free fluid. No organized fluid collection. No free air. Vasculature: Unremarkable. No aneurysm. Lymph nodes: No pathologically enlarged lymph nodes. Bladder: Unremarkable. Reproductive: Status post hysterectomy. Bones/joints: No acute osseous abnormality. Soft tissues: Unremarkable. IMPRESSION: 1. No CT evidence of acute intra-abdominal or pelvic pathology. 2. Additional findings, as above. Electronically signed by: Ricco Schrader On 09/20/2019 22:37:57 PM
[2019-09-20] MEDS ORDERED: ONDA4TAB6 PO (22:58)
[2019-09-20] MEDS ORDERED: DICY10CA13 PO (22:58)
[2019-09-20 23:24] VITALS: BP 144/82
== END 2019-09-21 00:06 | disposition home or self-care (01) ==
LOC: M ED 20:04
DX: R10.31 Right lower quadrant pain (principal); K76.0 Fatty (change of) liver, not elsewhere classified; K44.9 Diaphragmatic hernia without obstruction or gangrene; J44.9 Chronic obstructive pulmonary disease, unspecified; K21.9 Gastro-esophageal reflux disease without esophagitis; Z85.43 Personal history of malignant neoplasm of ovary; F17.210 Nicotine dependence, cigarettes, uncomplicated; Z79.51 Long term (current) use of inhaled steroids; Z79.899 Other long term (current) drug therapy
CPT/HCPCS: 74177; 80047; 80076; 81001; 85025; 96361; 96374; 96375; 99284; J1885; J2405; Q9967

== ENCOUNTER → 2019-12-04 | Outpatient (REF) | payer OTHER ==
[~2019-12-04] MED LIST changes: +ALBU8.5H IH; +DICY10CA13 PO
[2019-12-04 18:28] LABS: CHOLESTEROL RISK RATIO 11.483 (<5)
== END ==
LOC: M PLALAB 15:07
PROVIDERS: ATTEND Physician Assistant
DX: E78.2 Mixed hyperlipidemia (principal); E55.9 Vitamin D deficiency, unspecified

== ENCOUNTER 2020-12-28 20:38 | Emergency (ER) | payer OTHER ==
[~2020-12-28] VITALS: Ht 157.5 cm; Wt 60.7 kg
[~2020-12-28 20:38] MED LIST changes: +GABA-283 PO; -GABA-845 PO
[2020-12-28] MEDS ORDERED: TRAZ1TAB14 PO (20:46)
[2020-12-28 22:00] LABS: BASO % 0.3 % (0.0-1.0); HEMATOCRIT 45.1 % (36.0-47.0); HEMOGLOBIN 15.1 g/dl (12.0-15.5); LYMPH # 1.6 10^3/uL (1.5-5.0); LYMPH % 25.7 % (24.0-44.0); MEAN CORPUSCULAR HEMOGLOBIN 31.8 pg (27.0-33.0); MEAN CORPUSCULAR HGB CONC 33.5 g/dl (32.0-36.5); MEAN CORPUSCULAR VOLUME 94.9 fl (80.0-96.0); MONO # 0.2 10^3/uL (0.0-0.8); MONO % 3.3 % (2.0-8.0); NEUTROPHILS # 4.3 10^3/uL (1.5-8.5); NEUTROPHILS % 70.4 % (36.0-66.0); PLATELET COUNT, AUTOMATED 169 10^3/uL (150-450); RED BLOOD COUNT 4.75 10^6/uL (4.00-5.40); WHITE BLOOD COUNT 6.2 10^3/uL (4.0-10.0)
[2020-12-28] MEDS ORDERED: ONDANSETRON 4MG/2ML VIAL IV ONE (22:10)
[2020-12-28] MEDS ORDERED: KETOROLAC 30 MG/ML 1ML VIAL IV ONE (22:10)
[2020-12-28] MEDS ORDERED: NS 1,000 ML IV SCH (22:10)
[2020-12-28 22:30] LABS: ALBUMIN 4.2 GM/DL (3.2-5.2); ALT/SGPT 38 U/L (12-78); BILIRUBIN,DIRECT 0.1 MG/DL (0.0-0.2); BILIRUBIN,TOTAL 0.3 MG/DL (0.2-1.0); BLOOD UREA NITROGEN 10 MG/DL (7-18); CALCIUM LEVEL 8.7 MG/DL (8.5-10.1); CARBON DIOXIDE LEVEL 31 MEQ/L (21-32); CHLORIDE LEVEL 102 MEQ/L (98-107); CK-MB VALUE MASS < 1.0 NG/ML (<3.6); CPK CREATINE PHOSPHOKINASE 84 U/L (26-192); CREATININE FOR GFR 0.86 MG/DL (0.55-1.30); GLOMERULAR FILTRATION RATE > 60.0 (>58); GLUCOSE, FASTING 104 MG/DL (70-100); LIPASE 83 U/L (73-393); MB/CK RELATIVE INDEX 1.19 (< OR =4); POTASSIUM SERUM 3.7 MEQ/L (3.5-5.1); SODIUM LEVEL 138 MEQ/L (136-145); TOTAL PROTEIN 7.9 GM/DL (6.4-8.2); TROPONIN I < 0.02 NG/ML (< 0.10)
--- NOTE | 2020-12-28 23:04 | REPVR ---
PROCEDURE INFORMATION: Exam: XR Chest Exam date and time: 12/28/2020 10:23 PM Age: 40 years old Clinical indication: Chest pain TECHNIQUE: Imaging protocol: XR of the chest. Views: 2 views. COMPARISON: No relevant prior studies available. FINDINGS: Lungs: Unremarkable. No consolidation. No pulmonary edema. Pleural spaces: Unremarkable. No pleural effusion. No pneumothorax. Heart/Mediastinum: Unremarkable. No cardiomegaly. Bones/joints: There is a slight levoscoliosis at the thoracolumbar junction. Organs: There are surgical clips in the right upper quadrant of the abdomen related to a cholecystectomy. IMPRESSION: No acute findings. Electronically signed by: Fausto Boyd On 12/28/2020 23:04:25 PM
--- NOTE | 2020-12-29 01:20 | REPVR ---
PROCEDURE INFORMATION: Exam: CT Abdomen And Pelvis With Contrast Exam date and time: 12/28/2020 10:49 PM Age: 40 years old Clinical indication: Abdominal pain; Generalized TECHNIQUE: Imaging protocol: Computed tomography of the abdomen and pelvis with contrast. Radiation optimization: All CT scans at this facility use at least one of these dose optimization techniques: automated exposure control; mA and/or kV adjustment per patient size (includes targeted exams where dose is matched to clinical indication); or iterative reconstruction. Contrast material: ISO; Contrast volume: 100 ml; Contrast route: INTRAVENOUS (IV); COMPARISON: CT ABD/PEL W/IV CONTRAST ONLY 09/20/2019 10:04 PM FINDINGS: Lungs: The imaged portions of the lung bases are clear. The lungs were not fully imaged. Heart: No cardiomegaly or pericardial effusion. Mediastinal space: There is a small sliding hiatal hernia, which is similar in appearance compared to the prior CT abdomen and pelvis on 09/20/2019. Liver: The attenuation of the liver is more than 40 Hounsfield units lower in attenuation compared to the spleen, which is compatible with fatty liver infiltration. No liver lesion is identified. The contour of the liver is smooth. No hepatomegaly is noted. Gallbladder and bile ducts: There has been a cholecystectomy. There is no fluid collection in the gallbladder fossa. No dilation of the bile ducts is noted. No calcified stones are seen in the common bile duct. Pancreas: Normal. No dilation of the main pancreatic duct is noted. Spleen: Normal. No splenomegaly is noted. Adrenal glands: Normal. No adrenal mass is noted. Kidneys and ureters: There is a 3 mm benign-appearing cyst in the upper pole of the right kidney that is stable compared to the prior CT abdomen and pelvis on 09/20/2019 and for which follow-up imaging is not recommended. No solid renal mass is noted. No stones are noted in the kidneys or ureters. There is no hydronephrosis or hydroureter. There are no wedge-shaped areas of low attenuation in the kidneys to suggest pyelonephritis. There is no renal abscess or perinephric fluid collection. Stomach and bowel: There is thickening of the wall of the stomach, which may be secondary to its decompressed state versus gastritis. The small bowel is unremarkable. There is thickening of the wall of the ascending colon, transverse colon, descending colon, and sigmoid colon. The majority of the large bowel is decompressed. There is high attenuation fluid in the lumen of the cecum and ascending colon measuring up to 180 Hounsfield units, which may represent ingested material or acute hemorrhage. No pericolonic inflammatory fat stranding is noted. There is no evidence for bowel obstruction or perforated viscus. Appendix: Normal. There is no evidence for appendicitis. Intraperitoneal space: No free air. No ascites. No abscess. Retroperitoneal space: No fluid collection. No mass. Vasculature: The abdominal aorta is patent, normal in caliber, and there is no dissection. The iliac arteries, common femoral arteries, renal arteries, celiac artery, superior mesenteric artery, and inferior mesenteric artery are patent. There are mild atherosclerotic calcifications. Lymph nodes: No enlarged lymph nodes. Urinary bladder: The partially distended urinary bladder is unremarkable. No stones or masses are seen in the bladder. There is thickening of the wall of the partially distended urinary bladder. No calculi are noted in the bladder. Reproductive: There has been a hysterectomy. Bones/joints: There is no fracture or dislocation. No suspicious osteolytic or osteoblastic lesion. There is mild loss of disc height dorsally at the L5-S1 level. Soft tissues: Unremarkable. No hernia. No soft tissue fluid collection. IMPRESSION: 1. Thickening of the wall of the stomach and colon, which may be secondary to their decompressed state versus a gastrocolitis. 2. High attenuation fluid in the lumen of the cecum and ascending colon, which may represent ingested material or acute hemorrhage. 3. Thickening of the wall of the urinary bladder, which may be secondary to its partially distended state, bladder wall hypertrophy, or cystitis. Correlation with urinalysis is suggested. 4. Fatty liver. Electronically signed by: Fausto Boyd On 12/29/2020 01:19:42 AM
[2020-12-29 02:15] VITALS: BP 147/72
--- NOTE | 2020-12-29 08:15 | ECGEPIP ---
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
--- NOTE | 2020-12-29 13:56 | ED PDOC ---
Post-Departure Follow-Up ct abd/p faxed to [facility] for fu Abdirahman Reveles MD Dec 29, 2020 13:56
== END 2020-12-29 02:32 | disposition home or self-care (01) ==
LOC: M ED 20:38
DX: K58.8 Other irritable bowel syndrome (principal); R00.1 Bradycardia, unspecified; R10.9 Unspecified abdominal pain; K76.0 Fatty (change of) liver, not elsewhere classified; R07.9 Chest pain, unspecified; M79.7 Fibromyalgia; R56.9 Unspecified convulsions; G43.909 Migraine, unspecified, not intractable, without status migrainosus; F17.200 Nicotine dependence, unspecified, uncomplicated; Z79.899 Other long term (current) drug therapy
CPT/HCPCS: 71046; 74177; 80048; 80076; 81001; 82550; 82553; 83690; 85025; 93005; 96361; 96374; 96375; 99285; J1885; J2405

== ENCOUNTER 2021-04-08 09:29 | Emergency (ER) | payer OTHER ==
[~2021-04-08] VITALS: Ht 154.9 cm; Wt 59.9 kg
[~2021-04-08 09:29] MED LIST changes: +TRAZ1TAB14 PO
--- NOTE | 2021-04-08 10:08 | REP ---
INDICATION: fall. COMPARISON: 01/21/2019 TECHNIQUE: Four views FINDINGS: There is a slightly impacted distal radial fracture and a nondisplaced fractures through the base of the ulnar styloid process. IMPRESSION: Acute wrist fractures as described above. <Electronically signed by Marco Chamorro > 04/08/21 [id number]
[2021-04-08] MEDS ORDERED: KETOROLAC TROMETHAMINE 10 MG TAB PO ONE (10:40)
[2021-04-08 11:11] VITALS: BP 133/77
== END 2021-04-08 11:13 | disposition home or self-care (01) ==
LOC: M ED 09:29
DX: S52.502A Unspecified fracture of the lower end of left radius, initial encounter for closed fracture (principal); S52.615A Nondisplaced fracture of left ulna styloid process, initial encounter for closed fracture; Y92.009 Unspecified place in unspecified non-institutional (private) residence as the place of occurrence of the external cause; W10.8XXA Fall (on) (from) other stairs and steps, initial encounter; Y93.K1 Activity, walking an animal; Y99.9 Unspecified external cause status

== ENCOUNTER → 2021-04-12 | Outpatient (CLI) | payer OTHER ==
--- NOTE | 2021-04-12 13:05 | REP ---
INDICATION: LT WRIST FX. COMPARISON: 04/08/2021 without a cast TECHNIQUE: Three limited views FINDINGS: Previously described fractures are obscured by overlying casting material. There does not appear to be a significant change. IMPRESSION: As above <Electronically signed by Marco Chamorro > 04/12/21 [id number]
== END ==
LOC: M SOG 11:02
PROVIDERS: ATTEND Orthopaedic Surgery Sports Medicine
DX: S52.502A Unspecified fracture of the lower end of left radius, initial encounter for closed fracture (principal); X58.XXXA Exposure to other specified factors, initial encounter; Y92.89 Other specified places as the place of occurrence of the external cause; Y93.9 Activity, unspecified; Y99.9 Unspecified external cause status

== ENCOUNTER → 2021-04-19 | Outpatient (CLI) | payer OTHER ==
--- NOTE | 2021-04-19 10:32 | REP ---
INDICATION: LT WRIST FX FOLLOWUP. COMPARISON: None. TECHNIQUE: AP, lateral, oblique views of the left wrist FINDINGS: Healing fracture of the distal radial metaphysis and small ulnar styloid fracture. Further evaluation is limited due to overlying cast material. IMPRESSION: Healing wrist fractures. <Electronically signed by Skyler Barajas > 04/19/21 1025
== END ==
LOC: M SOG 10:06
PROVIDERS: ATTEND Orthopaedic Surgery Sports Medicine
DX: S52.502D Unspecified fracture of the lower end of left radius, subsequent encounter for closed fracture with routine healing (principal)

== ENCOUNTER → 2021-04-26 | Outpatient (CLI) | payer OTHER ==
--- NOTE | 2021-04-26 11:27 | REP ---
INDICATION: LT WRIST FX. COMPARISON: 04/19/2021 TECHNIQUE: AP, lateral, oblique views of the left wrist FINDINGS: Comminuted nondisplaced fracture of the distal radial metaphysis is again appreciated. Further evaluation of fine bony detail is limited due to overlying cast material. IMPRESSION: Stable satisfactory alignment to the distal radial fracture. <Electronically signed by Skyler Barajas > 04/26/21 [id number]
== END ==
LOC: M SOG 07:50
PROVIDERS: ATTEND Orthopaedic Surgery Sports Medicine
DX: S52.502D Unspecified fracture of the lower end of left radius, subsequent encounter for closed fracture with routine healing (principal); X58.XXXA Exposure to other specified factors, initial encounter; Y92.9 Unspecified place or not applicable; Y93.9 Activity, unspecified; Y99.9 Unspecified external cause status

== ENCOUNTER → 2021-05-03 | Outpatient (CLI) | payer OTHER ==
--- NOTE | 2021-05-03 15:00 | REP ---
INDICATION: LT WRIST FX. COMPARISON: 04/26/[address] TECHNIQUE: Two views with cast in place FINDINGS: The previously described distal radial fracture is again obscured by overlying casting material. Grossly, there appears to be no significant change IMPRESSION: No significant change <Electronically signed by Marco Chamorro > 05/03/21 [id number]
== END ==
LOC: M SOG 13:21
PROVIDERS: ATTEND Orthopaedic Surgery Sports Medicine
DX: S52.502D Unspecified fracture of the lower end of left radius, subsequent encounter for closed fracture with routine healing (principal); X58.XXXA Exposure to other specified factors, initial encounter; Y92.9 Unspecified place or not applicable; Y93.9 Activity, unspecified; Y99.9 Unspecified external cause status

== ENCOUNTER → 2021-05-24 | Outpatient (CLI) | payer OTHER ==
--- NOTE | 2021-05-24 14:21 | REP ---
INDICATION: LT WRIST FX. COMPARISON: 05/03/[address] TECHNIQUE: Two view FINDINGS: Previously described fractures are healing. There is no acute fracture. IMPRESSION: Healing <Electronically signed by Marco Chamorro > 05/24/21 [id number]
== END ==
LOC: M SOG 11:11
PROVIDERS: ATTEND Orthopaedic Surgery
DX: S52.502D Unspecified fracture of the lower end of left radius, subsequent encounter for closed fracture with routine healing (principal)

== ENCOUNTER → 2021-11-23 | Outpatient (CLI) | payer OTHER ==
[2021-11-23 15:32] LABS: C REACTIVE PROTEIN QUANTITATIV < 0.30 MG/DL (0.00-0.30); RHEUMATOID FACTOR QUANT < 10.0 IU/ML (<15.0); URIC ACID 3.1 MG/DL (2.6-6.0)
[2021-11-26 02:07] LABS: ANA (HEP2) Negative (.); CYCLIC CITRULLINATED PEPTIDE 2 units (0-19)
== END ==
LOC: M PLALAB 12:16
PROVIDERS: ATTEND Physician Assistant
DX: M06.9 Rheumatoid arthritis, unspecified (principal)

== ENCOUNTER → 2021-12-01 | Outpatient (CLI) | payer OTHER ==
[2021-12-01 15:48] LABS: C REACTIVE PROTEIN QUANTITATIV < 0.30 MG/DL (0.00-0.30); CHOLESTEROL LEVEL 370 MG/DL (<200); CHOLESTEROL RISK RATIO 11.935 (<5); HDL CHOLESTEROL 31 MG/DL (>40); LDL CHOLESTEROL 292 MG/DL (<100); NON-HDL-C 339 MG/DL; RHEUMATOID FACTOR QUANT < 10.0 IU/ML (<15.0); TRIGLYCERIDES LEVEL 234 MG/DL (<150); URIC ACID 3.1 MG/DL (2.6-6.0)
[2021-12-01 15:53] LABS: TOTAL 25(OH) VITAMIN D 26.5 NG/ML (30.0-100.0)
[2021-12-04 21:07] LABS: ANA (HEP2) Negative (.); CYCLIC CITRULLINATED PEPTIDE 4 units (0-19)
== END ==
LOC: M LAB 13:53
PROVIDERS: ATTEND Physician Assistant
DX: M46.96 Unspecified inflammatory spondylopathy, lumbar region (principal); M06.9 Rheumatoid arthritis, unspecified; E78.2 Mixed hyperlipidemia; E55.9 Vitamin D deficiency, unspecified

== ENCOUNTER → 2021-12-26 | Outpatient (CLI) | payer OTHER | LOC: M WUC 11:44 | PROVIDERS: ATTEND Physician Assistant | DX: M25.559 Pain in unspecified hip (principal); M79.671 Pain in right foot; G89.29 Other chronic pain ==

== ENCOUNTER 2022-01-10 11:21 | Emergency (ER) | payer OTHER ==
[~2022-01-10] VITALS: Ht 157.5 cm; Wt 55.4 kg
[2022-01-10] MEDS ORDERED: NS 1,000 ML IV ONE (15:00)
[2022-01-10 15:49] LABS: APPEARANCE, URINE CLEAR (CLEAR); BACTERIA, URINE AUTO NEGATIVE (NEGATIVE); BILIRUBIN, URINE AUTO 1+ (NEGATIVE); BLOOD, URINE BLOOD NEGATIVE (NEGATIVE); COLOR, URINE AMBER (YELLOW); GLUCOSE, URINE (UA) AUTO NEGATIVE (NEGATIVE); KETONE, URINE AUTO 1+ mg/dL (NEGATIVE); LEUKOCYTE ESTERASE, URINE AUTO NEGATIVE (NEGATIVE); MUCUS, URINE SMALL (NEGATIVE); NITRITE, URINE AUTO NEGATIVE (NEGATIVE); PROTEIN, URINE AUTO 1+ mg/dL (NEGATIVE); RBC, URINE AUTO 0 /HPF (0-3); SPECIFIC GRAVITY URINE AUTO 1.026 (1.002-1.035); SQUAMOUS EPITHELIAL CELL UR AU 0 /HPF (0-6); WBC, URINE AUTO 1 /HPF (0-3)
[2022-01-10] MEDS ORDERED: ISOVUE-370 76% 100ML VIAL As Ordered ONE (15:51)
[2022-01-10 15:52] LABS: BASO % 0.5 % (0.0-1.0); EOS % 0.2 % (0.0-3.0); LYMPH # 1.9 10^3/uL (1.5-5.0); MEAN CORPUSCULAR HEMOGLOBIN 31.4 pg (27.0-33.0); MEAN CORPUSCULAR HGB CONC 33.3 g/dl (32.0-36.5); MEAN CORPUSCULAR VOLUME 94.3 fl (80.0-96.0); MONO # 0.2 10^3/uL (0.0-0.8); MONO % 4.3 % (2.0-8.0); NEUTROPHILS # 2.3 10^3/uL (1.5-8.5); PLATELET COUNT, AUTOMATED 185 10^3/uL (150-450); RED BLOOD COUNT 4.77 10^6/uL (4.00-5.40); WHITE BLOOD COUNT 4.4 10^3/uL (4.0-10.0)
[2022-01-10 17:13] VITALS: BP 136/76
[2022-01-10 17:40] LABS: GC DNA AMPLIFICATION NEGATIVE (NEGATIVE)
== END 2022-01-10 17:16 | disposition home or self-care (01) ==
LOC: M ED 11:21
DX: N75.0 Cyst of Bartholin's gland (principal); F17.200 Nicotine dependence, unspecified, uncomplicated; K21.9 Gastro-esophageal reflux disease without esophagitis; Z79.51 Long term (current) use of inhaled steroids; Z79.899 Other long term (current) drug therapy
CPT/HCPCS: 74177; 80047; 81001; 85025; 87210; 87661; 87810; 87850; 96360; 99284; Q9967

== ENCOUNTER → 2022-04-06 | Outpatient (CLI) | payer OTHER ==
[2022-04-06 13:07] LABS: BASO % 0.2 % (0.0-1.0); HEMATOCRIT 47.8 % (36.0-47.0); HEMOGLOBIN 15.8 g/dl (12.0-15.5); LYMPH # 1.5 10^3/uL (1.5-5.0); LYMPH % 30.5 % (24.0-44.0); MEAN CORPUSCULAR HEMOGLOBIN 30.9 pg (27.0-33.0); MEAN CORPUSCULAR HGB CONC 33.1 g/dl (32.0-36.5); MEAN CORPUSCULAR VOLUME 93.5 fl (80.0-96.0); MONO # 0.2 10^3/uL (0.0-0.8); MONO % 3.2 % (2.0-8.0); NEUTROPHILS # 3.1 10^3/uL (1.5-8.5); NEUTROPHILS % 65.9 % (36.0-66.0); PLATELET COUNT, AUTOMATED 194 10^3/uL (150-450); RED BLOOD COUNT 5.11 10^6/uL (4.00-5.40); WHITE BLOOD COUNT 4.8 10^3/uL (4.0-10.0)
== END ==
LOC: M WUC 10:06
PROVIDERS: ATTEND Physician Assistant
DX: R19.7 Diarrhea, unspecified (principal); R23.3 Spontaneous ecchymoses

== ENCOUNTER → 2022-05-29 | Outpatient (CLI) | payer OTHER | LOC: M SLEEP 20:00 | PROVIDERS: ATTEND Physician Assistant | DX: R40.0 Somnolence (principal) ==

== ENCOUNTER → 2022-06-15 | Outpatient (REF) | payer OTHER | LOC: M PLALAB 13:37 | PROVIDERS: ATTEND Nurse Practitioner Family | DX: Z12.72 Encounter for screening for malignant neoplasm of vagina (principal) ==

== ENCOUNTER → 2022-07-04 | Outpatient (CLI) | payer OTHER | LOC: M WHC 10:27 | PROVIDERS: ATTEND Nurse Practitioner Family | DX: Z12.31 Encounter for screening mammogram for malignant neoplasm of breast (principal) ==

== ENCOUNTER → 2022-08-17 | Outpatient (CLI) | payer OTHER | LOC: M WHC 08:35 | PROVIDERS: ATTEND Nurse Practitioner Family | DX: R92.2 Inconclusive mammogram (principal) ==

== ENCOUNTER → 2022-08-28 | Outpatient (CLI) | payer OTHER | LOC: M WUC 12:58 | PROVIDERS: ATTEND Physician Assistant | DX: S60.221A Contusion of right hand, initial encounter (principal); Y92.89 Other specified places as the place of occurrence of the external cause; Y99.9 Unspecified external cause status ==

== ENCOUNTER → 2022-08-30 | Outpatient (CLI) | payer OTHER | LOC: M LABSMTC 11:22 | PROVIDERS: ATTEND Anesthesiology | DX: Z01.812 Encounter for preprocedural laboratory examination (principal); Z11.52 Encounter for screening for COVID-19 ==

== ENCOUNTER 2022-09-01 09:36 | Day surgery (SDC) | payer OTHER ==
[~2022-09-01] VITALS: Ht 157.5 cm; Wt 56.7 kg
[2022-09-01] MEDS ORDERED: fentaNYL 100 MCG/2 ML INJECTION As Ordered ONE (10:47)
[2022-09-01] MEDS ORDERED: LIDOCAINE 2% 100MG/5ML SDV (FOR ANES.) As Ordered ONE (10:47)
[2022-09-01] MEDS ORDERED: MIDAZOLAM INJ 2MG/2ML VIAL As Ordered ONE (10:47)
[2022-09-01] MEDS ORDERED: propofoL 200 MG/20 ML VIAL As Ordered ONE (10:47)
[2022-09-01] MEDS ORDERED: ONDANSETRON 4MG 2ML VIAL As Ordered ONE (10:47)
[2022-09-01] MEDS ORDERED: BUPIVACAINE HCL 0.25% 30ML VIAL As Ordered ONE (10:48)
[2022-09-01] MEDS ORDERED: ceFAZolin 2 GM/D5W 50 ML IV BAG As Ordered ONE (11:00)
[2022-09-01] MEDS ORDERED: LR 1,000 ML IV SCH ×2 (11:05→11:50)
[2022-09-01] MEDS ORDERED: ePHEDrine SULFATE 25 MG/5 ML(5MG/ML) SYRINGE As Ordered ONE (11:18)
[2022-09-01] MEDS ORDERED: KETOROLAC 60MG 2ML VIAL As Ordered ONE (11:37)
[2022-09-01] MEDS ORDERED: METOCLOPRAMIDE INJ 10MG/2ML VIAL IV PRN (11:50)
[2022-09-01] MEDS ORDERED: fentaNYL 100 MCG/2 ML INJECTION IV PRN (11:50)
[2022-09-01] MEDS ORDERED: oxyCODONE 5MG TAB PO PRN (11:50)
[2022-09-01] MEDS ORDERED: ONDANSETRON 4MG 2ML VIAL IV PRN (11:50)
[2022-09-01] MEDS ORDERED: PERC5TAB12 PO (11:57)
[2022-09-01 12:54] VITALS: BP 107/62
== END 2022-09-01 13:22 | disposition home or self-care (01) ==
LOC: M SDC 09:36
PROVIDERS: ATTEND Orthopaedic Surgery Hand Surgery
DX: S62.336A Displaced fracture of neck of fifth metacarpal bone, right hand, initial encounter for closed fracture (principal); W22.09XA Striking against other stationary object, initial encounter; Y92.89 Other specified places as the place of occurrence of the external cause; Y93.9 Activity, unspecified; Y99.9 Unspecified external cause status; J45.909 Unspecified asthma, uncomplicated; F41.9 Anxiety disorder, unspecified; F32.A Depression, unspecified; M79.7 Fibromyalgia; F17.210 Nicotine dependence, cigarettes, uncomplicated; F12.10 Cannabis abuse, uncomplicated
CPT/HCPCS: 26608; 76000; J0690; J1100; J2250; J2405; J3010

== ENCOUNTER → 2022-09-11 | Outpatient (CLI) | payer OTHER | LOC: M SOG 10:13 | PROVIDERS: ATTEND Physician Assistant | DX: Z47.89 Encounter for other orthopedic aftercare (principal) ==

== ENCOUNTER → 2022-09-22 | Outpatient (REF) | payer OTHER ==
[2022-09-22 16:42] LABS: HEMATOCRIT 42.9 % (36.0-47.0); HEMOGLOBIN 14.2 g/dl (12.0-15.5); MEAN CORPUSCULAR HEMOGLOBIN 31.3 pg (27.0-33.0); MEAN CORPUSCULAR HGB CONC 33.1 g/dl (32.0-36.5); MEAN CORPUSCULAR VOLUME 94.7 fl (80.0-96.0); PLATELET COUNT, AUTOMATED 184 10^3/uL (150-450); RED BLOOD COUNT 4.53 10^6/uL (4.00-5.40); WHITE BLOOD COUNT 5.1 10^3/uL (4.0-10.0)
[2022-09-22 17:11] LABS: BLOOD UREA NITROGEN 9 MG/DL (9-23); CARBON DIOXIDE LEVEL 32 MMOL/L (20-31); CHLORIDE LEVEL 100 MMOL/L (98-107); CHOLESTEROL LEVEL 106 MG/DL (<200); CREATININE FOR GFR 0.89 MG/DL (0.55-1.30); GLOMERULAR FILTRATION RATE > 60.0 (>58); GLUCOSE, FASTING 93 MG/DL (60-100); HDL CHOLESTEROL 37.8 MG/DL (>40); NON-HDL-C 68.2 MG/DL; POTASSIUM SERUM 4.7 MMOL/L (3.5-5.1); SODIUM LEVEL 138 MMOL/L (136-145); TRIGLYCERIDES LEVEL 151 MG/DL (<150)
== END ==
LOC: M LABWUC 16:12
PROVIDERS: ATTEND Physician Assistant
DX: R07.9 Chest pain, unspecified (principal)

== ENCOUNTER → 2022-09-25 | Outpatient (REF) | payer OTHER | LOC: M SFHCADAM 10:22 | PROVIDERS: ATTEND Physician Assistant | DX: E55.9 Vitamin D deficiency, unspecified (principal) ==

== ENCOUNTER → 2022-09-26 | Outpatient (CLI) | payer OTHER | LOC: M SOG 08:12 | PROVIDERS: ATTEND Physician Assistant | DX: M79.641 Pain in right hand (principal) ==

== ENCOUNTER → 2022-10-27 | Outpatient (CLI) | payer OTHER | LOC: M SOG 13:00 | PROVIDERS: ATTEND Physician Assistant | DX: S62.336D Displaced fracture of neck of fifth metacarpal bone, right hand, subsequent encounter for fracture with routine healing (principal) ==

== ENCOUNTER → 2022-11-10 | Outpatient (CLI) | payer OTHER, MEDICAID ==
[~2022-11-10] MED LIST changes: +AIMO70IN2 SQ; -ALBU8.5H IH; +ALBU8.5H INH; +ASPI81CH33 PO; +DOCU100C16 PO; +DULO40CA PO; +ERGO500029 PO; +EZET10TA21 PO; +FLUT12AE3 INH; +LISI5TAB11 PO; +REPA140I2 SC; +ROSU40TA4 PO; +STIO1AER INH; +VITA200016 PO
== END ==
LOC: M PLAIMG 12:06
PROVIDERS: ATTEND Physician Assistant
DX: J44.9 Chronic obstructive pulmonary disease, unspecified (principal); M41.25 Other idiopathic scoliosis, thoracolumbar region

== ENCOUNTER 2022-11-23 11:45 | Day surgery (SDC) | payer OTHER ==
[~2022-11-23] VITALS: Ht 157.5 cm; Wt 60.3 kg
[2022-11-23 12:10] LABS: HEMATOCRIT 42.5 % (36.0-47.0); HEMOGLOBIN 13.8 g/dl (12.0-15.5); MEAN CORPUSCULAR HEMOGLOBIN 31.5 pg (27.0-33.0); MEAN CORPUSCULAR HGB CONC 32.5 g/dl (32.0-36.5); PLATELET COUNT, AUTOMATED 161 10^3/uL (150-450); RED BLOOD COUNT 4.38 10^6/uL (4.00-5.40)
[2022-11-23] MEDS ORDERED: LR 1,000 ML IV SCH (12:20)
[2022-11-23] MEDS ORDERED: KETOROLAC 60MG 2ML VIAL As Ordered ONE (13:42)
[2022-11-23] MEDS ORDERED: ONDANSETRON 4MG 2ML VIAL As Ordered ONE (13:42)
[2022-11-23] MEDS ORDERED: propofoL 200 MG/20 ML VIAL As Ordered ONE ×2 (13:43→14:10)
[2022-11-23] MEDS ORDERED: LIDOCAINE 2% 100MG/5ML SDV (FOR ANES.) As Ordered ONE (13:43)
[2022-11-23] MEDS ORDERED: MIDAZOLAM INJ 2MG/2ML VIAL As Ordered ONE (13:46)
[2022-11-23] MEDS ORDERED: fentaNYL 100 MCG/2 ML INJECTION As Ordered ONE (13:46)
[2022-11-23] MEDS ORDERED: BUPIVACAINE HCL 0.25% 30ML VIAL As Ordered ONE (14:11)
[2022-11-23 15:45] VITALS: BP 107/55
== END 2022-11-23 16:05 | disposition home or self-care (01) ==
LOC: M SDC 11:45
PROVIDERS: ATTEND Specialist
DX: N90.7 Vulvar cyst (principal); E78.5 Hyperlipidemia, unspecified; K21.9 Gastro-esophageal reflux disease without esophagitis; G43.909 Migraine, unspecified, not intractable, without status migrainosus; G40.909 Epilepsy, unspecified, not intractable, without status epilepticus; Z86.73 Personal history of transient ischemic attack (TIA), and cerebral infarction without residual deficits; Z85.43 Personal history of malignant neoplasm of ovary; M79.7 Fibromyalgia; Z79.51 Long term (current) use of inhaled steroids; Z79.899 Other long term (current) drug therapy; F17.210 Nicotine dependence, cigarettes, uncomplicated; F12.10 Cannabis abuse, uncomplicated; F41.9 Anxiety disorder, unspecified; F32.A Depression, unspecified; J44.9 Chronic obstructive pulmonary disease, unspecified
CPT/HCPCS: 36415; 57135; 85027; 88305; J1100; J1885; J2250; J2405; J3010

== ENCOUNTER → 2023-02-08 | Outpatient (REF) | payer OTHER ==
[~2023-02-08] MED LIST changes: +DICY-61 PO; -DICY10CA13 PO; -GABA-283 PO; +GABA-284 PO
[2023-02-08 13:43] LABS: BASO % 0.2 % (0.0-1.0); HEMATOCRIT 46.4 % (36.0-47.0); HEMOGLOBIN 15.3 g/dl (12.0-15.5); LYMPH # 2.6 10^3/uL (1.5-5.0); LYMPH % 43.4 % (24.0-44.0); MEAN CORPUSCULAR VOLUME 94.1 fl (80.0-96.0); MONO # 0.2 10^3/uL (0.0-0.8); NEUTROPHILS # 3.1 10^3/uL (1.5-8.5); NEUTROPHILS % 52.1 % (36.0-66.0); PLATELET COUNT, AUTOMATED 195 10^3/uL (150-450); RED BLOOD COUNT 4.93 10^6/uL (4.00-5.40); WHITE BLOOD COUNT 5.9 10^3/uL (4.0-10.0)
[2023-02-08 14:11] LABS: IRON (FE) 105 UG/DL (50-170); PERCENT SATURATION 27.7 % (13.2-45.0); TOTAL IRON BINDING CAPACITY 379 UG/DL (250-425)
[2023-02-08 14:12] LABS: ALKALINE PHOSPHATASE 76 U/L (46-116); ALT/SGPT 20 U/L (7.0-40); AST/SGOT 17 U/L (<34); BILIRUBIN,TOTAL 0.4 MG/DL (0.3-1.2); BLOOD UREA NITROGEN 9 MG/DL (9-23); CALCIUM LEVEL 8.9 MG/DL (8.5-10.1); CARBON DIOXIDE LEVEL 30 MMOL/L (20-31); CHLORIDE LEVEL 103 MMOL/L (98-107); CHOLESTEROL LEVEL 186 MG/DL (<200); CHOLESTEROL RISK RATIO 5.43 (<5); CREATININE FOR GFR 0.82 MG/DL (0.55-1.30); GLOMERULAR FILTRATION RATE > 60.0 (>58); GLUCOSE, FASTING 106 MG/DL (60-100); HDL CHOLESTEROL 34.2 MG/DL (>40); LDL CHOLESTEROL 118.4 MG/DL (<100); NON-HDL-C 151.8 MG/DL; POTASSIUM SERUM 4.5 MMOL/L (3.5-5.1); SODIUM LEVEL 141 MMOL/L (136-145); TOTAL PROTEIN 6.8 G/DL (5.7-8.2); TRIGLYCERIDES LEVEL 167 MG/DL (<150)
[2023-02-08 14:15] LABS: FERRITIN 6.4 NG/ML (7.3-270.7)
[2023-02-08 18:39] LABS: CPK CREATINE PHOSPHOKINASE 134 U/L (34-145); URIC ACID 3.8 MG/DL (3.1-7.8)
[2023-02-08 18:40] LABS: C REACTIVE PROTEIN QUANTITATIV < 0.40 MG/DL (<1.0)
[2023-02-08 18:41] LABS: RHEUMATOID FACTOR QUANT < 3.5 IU/ML (<14)
[2023-02-10 23:06] LABS: ANA (HEP2) Negative (.); CYCLIC CITRULLINATED PEPTIDE 4 units (0-19)
== END ==
LOC: M SFHCADAM 10:36
PROVIDERS: ATTEND Physician Assistant
DX: E78.00 Pure hypercholesterolemia, unspecified (principal); E55.9 Vitamin D deficiency, unspecified; D50.9 Iron deficiency anemia, unspecified

== ENCOUNTER → 2023-07-20 | Outpatient (CLI) | payer OTHER, MEDICAID | LOC: M ADAMS 11:59 | PROVIDERS: ATTEND Physician Assistant | DX: M79.7 Fibromyalgia (principal); G89.29 Other chronic pain; M25.50 Pain in unspecified joint ==

== ENCOUNTER → 2024-01-24 | Outpatient (REF) | payer OTHER, MEDICAID ==
[~2024-01-24] MED LIST changes: +ONDA-282 PO; -ONDA4TAB6 PO; -ROSU40TA4 PO; +ROSU40TA63 PO
[2024-01-24 19:52] LABS: CHOLESTEROL RISK RATIO 4.85 (<5)
[2024-01-26 07:47] LABS: LDL DIRECT 101 mg/dL (<100)
== END ==
LOC: M LABWUC 16:23
PROVIDERS: ATTEND Internal Medicine Cardiovascular Disease
DX: E78.2 Mixed hyperlipidemia (principal)

== ENCOUNTER → 2024-06-27 | Outpatient (CLI) | payer OTHER ==
[~2024-06-27] MED LIST changes: -ROSU40TA63 PO; +ROSU40TA81 PO
[2024-06-27 19:42] LABS: BASO % 0.4 % (0.0-1.0); HEMATOCRIT 47.7 % (36.0-47.0); HEMOGLOBIN 15.8 g/dl (12.0-15.5); LYMPH # 2.3 10^3/uL (1.5-5.0); LYMPH % 43.3 % (24.0-44.0); MEAN CORPUSCULAR HGB CONC 33.1 g/dl (32.0-36.5); MEAN CORPUSCULAR VOLUME 93.7 fl (80.0-96.0); MONO # 0.3 10^3/uL (0.0-0.8); NEUTROPHILS # 2.7 10^3/uL (1.5-8.5); NEUTROPHILS % 50.9 % (36.0-66.0); PLATELET COUNT, AUTOMATED 186 10^3/uL (150-450); RED BLOOD COUNT 5.09 10^6/uL (4.00-5.40); WHITE BLOOD COUNT 5.2 10^3/uL (4.0-10.0)
[2024-06-27 19:50] LABS: URIC ACID 3.3 MG/DL (3.1-7.8)
[2024-06-27 19:51] LABS: ERYTHROCYTE SEDIMENTATION RATE 22 mm/hr (0-20)
[2024-06-27 19:54] LABS: ALKALINE PHOSPHATASE 60 U/L (35-104); ALT/SGPT 28 U/L (7.0-40); AST/SGOT 27 U/L (<34); BILIRUBIN,TOTAL 0.4 MG/DL (0.3-1.2); BLOOD UREA NITROGEN 10 MG/DL (9-23); C REACTIVE PROTEIN QUANTITATIV < 0.50 MG/DL (<1.0); CALCIUM LEVEL 9.6 MG/DL (8.5-10.1); CARBON DIOXIDE LEVEL 31 MMOL/L (20-31); CHLORIDE LEVEL 102 MMOL/L (98-107); CHOLESTEROL LEVEL 250 MG/DL (<200); CHOLESTEROL RISK RATIO 5.99 (<5); CREATININE FOR GFR 0.71 MG/DL (0.55-1.30); GLOMERULAR FILTRATION RATE > 60.0 (>58); GLUCOSE, FASTING 73 MG/DL (60-100); HDL CHOLESTEROL 41.7 MG/DL (>40); LDL CHOLESTEROL 162.7 MG/DL (<100); NON-HDL-C 208.3 MG/DL; RHEUMATOID FACTOR QUANT < 3.5 IU/ML (<14); SODIUM LEVEL 140 MMOL/L (136-145); TOTAL PROTEIN 7.3 G/DL (5.7-8.2); TRIGLYCERIDES LEVEL 228 MG/DL (<150)
[2024-06-27 20:23] LABS: CREATININE, URINE 49.5 MG/DL; MALB URINE SIEMENS < 3.0 MG/L
== END ==
LOC: M PLALAB 15:15
PROVIDERS: ATTEND Physician Assistant
DX: M25.541 Pain in joints of right hand (principal); M25.542 Pain in joints of left hand; M06.9 Rheumatoid arthritis, unspecified; I10 Essential (primary) hypertension; E78.00 Pure hypercholesterolemia, unspecified

== ENCOUNTER → 2024-07-21 | Outpatient (CLI) | payer OTHER | LOC: M ADAMS 11:39 | PROVIDERS: ATTEND Physician Assistant | DX: M25.541 Pain in joints of right hand (principal); M25.542 Pain in joints of left hand ==

== ENCOUNTER → 2024-08-08 | Outpatient (CLI) | payer OTHER | LOC: M RAD 11:10 | PROVIDERS: ATTEND Physician Assistant | DX: M79.604 Pain in right leg (principal); M79.605 Pain in left leg ==

== ENCOUNTER 2024-09-05 15:33 | Emergency (ER) | payer MEDICAID, OTHER ==
[~2024-09-05] VITALS: Ht 157.5 cm; Wt 50.6 kg
[2024-09-05 15:48] VITALS: TEMP 97.8
[2024-09-05] MEDS ORDERED: PRED20TA (15:59)
[2024-09-05] MEDS ORDERED: AZIT-12 (15:59)
[2024-09-05 19:42] LABS: EOS % 0.4 % (0.0-3.0); HEMATOCRIT 46.2 % (36.0-47.0); LYMPH # 0.7 10^3/uL (1.5-5.0); LYMPH % 9.9 % (24.0-44.0); MEAN CORPUSCULAR HEMOGLOBIN 30.4 pg (27.0-33.0); MEAN CORPUSCULAR HGB CONC 32.5 g/dl (32.0-36.5); MEAN CORPUSCULAR VOLUME 93.5 fl (80.0-96.0); MONO # 0.1 10^3/uL (0.0-0.8); NEUTROPHILS # 6.4 10^3/uL (1.5-8.5); NEUTROPHILS % 88.4 % (36.0-66.0); PLATELET COUNT, AUTOMATED 223 10^3/uL (150-450); RED BLOOD COUNT 4.94 10^6/uL (4.00-5.40); WHITE BLOOD COUNT 7.2 10^3/uL (4.0-10.0)
[2024-09-05 20:15] LABS: CK-MB VALUE MASS < 1.0 NG/ML (<3.6)
[2024-09-05 20:17] LABS: BLOOD UREA NITROGEN 10 MG/DL (9-23); CARBON DIOXIDE LEVEL 31 MMOL/L (20-31); CHLORIDE LEVEL 101 MMOL/L (98-107); CREATININE FOR GFR 0.72 MG/DL (0.55-1.30); GLOMERULAR FILTRATION RATE > 60.0 (>58); GLUCOSE, FASTING 119 MG/DL (60-100); POTASSIUM SERUM 4.4 MMOL/L (3.5-5.1); SODIUM LEVEL 139 MMOL/L (136-145)
[2024-09-05 20:19] LABS: CPK CREATINE PHOSPHOKINASE 37 U/L (34-145)
[2024-09-05 20:35] VITALS: O2SAT 95
[2024-09-05] MEDS: IPRATROPIUM 0.5MG/ALBUTEROL 2.5MG INH SOL UD 3ML (DUONEB) NEB ONE ×2 (21:42)
[2024-09-05] MEDS: methylPREDNISolone 125MG 2ML VIAL IV ONE (22:15)
[2024-09-05] MEDS ORDERED: COMBAER6 INH (22:17)
[2024-09-05] MEDS ORDERED: PRED10TA2 PO (22:18)
[2024-09-05 22:25] VITALS: BP 102/56; O2SAT 91
== END 2024-09-05 22:54 | disposition home or self-care (01) ==
LOC: M ED 15:33
DX: J45.901 Unspecified asthma with (acute) exacerbation (principal); R00.1 Bradycardia, unspecified; E55.9 Vitamin D deficiency, unspecified; J45.909 Unspecified asthma, uncomplicated; G43.909 Migraine, unspecified, not intractable, without status migrainosus; J22 Unspecified acute lower respiratory infection; R19.5 Other fecal abnormalities; R63.4 Abnormal weight loss; M25.542 Pain in joints of left hand; F17.210 Nicotine dependence, cigarettes, uncomplicated; F12.20 Cannabis dependence, uncomplicated; Z79.52 Long term (current) use of systemic steroids; Z79.2 Long term (current) use of antibiotics; Z79.899 Other long term (current) drug therapy; Z79.83 Long term (current) use of bisphosphonates; Z79.82 Long term (current) use of aspirin; Z88.8 Allergy status to other drugs, medicaments and biological substances
CPT/HCPCS: 71046; 80048; 82550; 82553; 84484; 85025; 85379; 87486; 87581; 87633; 87798; 93005; 94640; 96374; 99215; 99284; 99439; 99490; J2919

== ENCOUNTER → 2024-09-08 | Outpatient (REF) | payer OTHER ==
[~2024-09-08] MED LIST changes: +AZIT-12; +COMBAER6 INH; +PRED10TA2 PO; +PRED20TA
== END ==
LOC: M SFHCADAM 17:09
PROVIDERS: ATTEND Physician Assistant
DX: R19.5 Other fecal abnormalities (principal); R63.4 Abnormal weight loss

== ENCOUNTER → 2024-09-11 | Outpatient (CLI) | payer OTHER | LOC: M RAD 07:14 | PROVIDERS: ATTEND Physician Assistant | DX: J44.1 Chronic obstructive pulmonary disease with (acute) exacerbation (principal) ==

== ENCOUNTER → 2024-09-12 | Outpatient (CLI) | payer OTHER | LOC: M LAB 16:01 | PROVIDERS: ATTEND Physician Assistant | DX: J47.1 Bronchiectasis with (acute) exacerbation (principal) ==